=== PATIENT | female | born 1960 | race Two or more races ===

== ENCOUNTER 2022-08-28 00:30 | Emergency (ER) | payer MEDICARE, OTHER ==
[~2022-08-28] VITALS: Ht 162.6 cm; Wt 79.8 kg
--- NOTE | 2022-08-28 01:16 | NUR ---
[id number] C/O GEB BODY PAIN & LEG SWELLING FOR A COUPLE WEEKS. PT A/OX3 TOLERATING R/A WELL WITH NO RESP DISTRESS. SAFETY MEASURES IN PLACE
[2022-08-28 02:53] LABS: BASOPHILS % (AUTO) 0.4 % (0.0-2.0); EOSINOPHILS % (AUTO) 2.7 % (0.0-6.0); HEMATOCRIT 31 % (33-45); HEMOGLOBIN 10.1 g/dL (11.5-14.8); LYMPHOCYTES # (AUTO) 1.4 K/uL (0.8-4.8); LYMPHOCYTES % (AUTO) 16.6 % (20.0-44.0); MEAN CORPUSCULAR HGB CONC 33 g/dl (31.0-36.0); MEAN CORPUSCULAR VOLUME 87 fL (82-100); MONOCYTES # (AUTO) 1.1 K/uL (0.1-1.30); MONOCYTES % (AUTO) 12.8 % (2.0-12.0); NEUTROPHILS # (AUTO) 5.6 K/uL (1.8-8.9); NEUTROPHILS % (AUTO) 67.5 % (43.0-81.0); PLATELET COUNT (AUTO) 479 K/uL (150-450); RED BLOOD CELL COUNT(AUTO) 3.59 MIL/uL (4.0-5.2); WHITE BLOOD COUNT (AUTO) 8.2 K/uL (4.3-11.0)
[2022-08-28 03:01] LABS: CALCIUM, SERUM 8.8 mg/dL (8.5-10.1); CREATININE 0.8 mg/dL (0.6-1.3); POTASSIUM 3.6 mmol/L (3.5-5.1)
--- NOTE | 2022-08-28 04:35 | NUR ---
WOUND CARE DONE TO FEET
[2022-08-28 05:15] VITALS: BP 138/86
--- NOTE | 2022-08-28 05:15 | NUR ---
Patient discharged to home in stable condition. Written and verbal after care instructions given. Patient verbalizes understanding of instruction.
== END 2022-08-28 05:17 | disposition home or self-care (01) ==
LOC: ER 00:32
DX: I89.0 Lymphedema, not elsewhere classified (principal); I50.9 Heart failure, unspecified; Z59.00 Homelessness unspecified
CPT/HCPCS: 36415; 80048-TC; 83880; 85025-TC; 93970-TC

== ENCOUNTER 2022-08-28 08:13 | Emergency (ER) | payer MEDICARE, OTHER ==
[~2022-08-28] VITALS: Ht 180.3 cm; Wt 63.5 kg
--- NOTE | 2022-08-28 08:13 | NUR ---
TO ER BED 1. BIBS C/O HAVING AN IRREGULAR HEART RATE, HEART RATE IS 75 UPON TRIAGE. PT WAS HERE EARLIER THIS MORNING FOR THE SAME COMPLAINT. VITALS ARE WITHIN NORMAL LIMITS. DR COOMBS AT BEDSIDE FOR EVAL. AWAITING MD ORDERS.
[2022-08-28 09:26] VITALS: BP 127/70
--- NOTE | 2022-08-28 09:26 | NUR ---
Patient discharged to home in stable condition. Written and verbal after care instructions given. Patient verbalizes understanding of instruction.
== END 2022-08-28 09:27 | disposition home or self-care (01) ==
LOC: ER 08:22
DX: R00.2 Palpitations (principal); I89.0 Lymphedema, not elsewhere classified; I50.9 Heart failure, unspecified; Z59.00 Homelessness unspecified